=== PATIENT | female | born 1975 | race Caucasian/White ===

== ENCOUNTER 2018-11-01 11:08 | Observation (INO) | payer MEDICAID ==
[2018-11-01 13:27] LABS: ADD UMIC YES; UR ASCORBIC ACID NEGATIVE (NEGATIVE); UR BACTERIA FEW /HPF (NONE SEEN); UR BILIRUBIN (Dip) NEGATIVE (NEGATIVE); UR BLOOD (Dip) 3+ mg/dL (NEGATIVE); UR CLARITY SLIGHTLY CLOUDY (CLEAR); UR COLOR YELLOW (YELLOW); UR GLUCOSE (Dip) NEGATIVE (NEGATIVE); UR KETONES (Dip) 1+ mg/dL (NEGATIVE); UR LEUKOCYTE ESTERASE (Dip) 1+ Leu/ul (NEGATIVE); UR MUCUS FEW /HPF (NONE SEEN); UR NITRITE (Dip) NEGATIVE (NEGATIVE); UR RBC 10 /HPF (0-5); UR SPECIFIC GRAVITY (Dip) 1.009 (1.003-1.030); UR SQUAMOUS EPITHELIAL CELL FEW /HPF (FEW); UR TOTAL PROTEIN (Dip) NEGATIVE (NEGATIVE); UR UROBILINOGEN (Dip) NEGATIVE (NEGATIVE); UR WBC 14 /HPF (0-5)
[2018-11-01] MEDS: LACTATED RINGER'S 1,000 ML IV ×3 (13:43→18:27)
[2018-11-01] MEDS ORDERED: IBUPROFEN 600 MG TAB PO (16:30)
[2018-11-01] MEDS ORDERED: BUTORPHANOL 2 MG INJ IV (16:30)
[2018-11-01] MEDS ORDERED: LIDOCAINE 1% (MPF) 30 ML INJ INJ (16:30)
[2018-11-01] MEDS ORDERED: CARBOPROST 250 MCG INJ IM (16:30)
[2018-11-01] MEDS ORDERED: METHYLERGONOVINE 0.2 MG INJ IM (16:30)
[2018-11-01] MEDS ORDERED: OXYCODONE/ASPIRIN (4.88/325) TAB PO (16:30)
[2018-11-01] MEDS ORDERED: MISOPROSTOL 200 MCG TAB PR (16:30)
[2018-11-01] MEDS ORDERED: BUTORPHANOL 1 MG INJ IV (16:30)
[2018-11-01] MEDS ORDERED: OXYTOCIN 30 UNITS/LR 500 ML IV ×3 (16:30)
[2018-11-01 16:49] LABS: ADD MAN DIFF? NO
[2018-11-01 16:50] LABS: BASOPHILS % 0.3 % (0.0-2.0); EOSINOPHILS % 0.1 % (0.0-7.0); HEMATOCRIT 38.6 % (37.0-47.0); HEMOGLOBIN 13.1 g/dl (12.0-16.0); LYMPHOCYTES # 1.5 10^3/ul (0.8-2.9); LYMPHOCYTES % 13.4 % (15.0-51.0); MEAN CORPUSCULAR HEMOGLOBIN 31.6 pg (29.0-33.0); MEAN CORPUSCULAR HGB CONC 33.9 g/dl (32.0-37.0); MEAN CORPUSCULAR VOLUME 93.2 fl (82.0-101.0); MEAN PLATELET VOLUME 11.1 fl (7.4-10.4); MONOCYTE # 0.5 10^3/ul (0.3-0.9); MONOCYTES % 4.8 % (0.0-11.0); PLATELET COUNT 184 10^3/UL (140-415); RED BLOOD COUNT 4.14 10^6/ul (4.20-5.40); RED CELL DISTRIBUTION WIDTH 13.2 % (11.5-14.5)
[2018-11-01 16:50] LABS: WHITE BLOOD COUNT 11.2 10^3/ul (4.8-10.8)
[2018-11-01 17:06] LABS: INR 0.88; PARTIAL THROMBOPLASTIN TIME 26.4 Sec (23.0-35.0); PT RATIO 0.9
[2018-11-01 17:07] LABS: GLUCOSE 78 mg/dl (70-220)
[2018-11-01] MEDS: BETAMET NA PHOS/AC(6 MG/ML) 2 ML INJ SYG IM (17:17)
[2018-11-01 17:39] LABS: HEPATITIS B SURFACE ANTIGEN NEGATIVE (NEGATIVE)
[2018-11-01 17:48] LABS: HIV 1&2 ANTIBODY NEGATIVE (NEGATIVE)
[2018-11-01] MEDS: ACETAMINOPHEN 325 MG TAB PO (19:00)
[2018-11-02] MEDS: LACTATED RINGER'S 1,000 ML IV ×2 (00:47→08:15)
[2018-11-02] MEDS: BETAMET NA PHOS/AC(6 MG/ML) 2 ML INJ SYG IM (05:39)
[2018-11-02] MEDS: DEXTROSE 5%-LR 1,000 ML IV (11:32)
[2018-11-02 14:52] LABS: RAPID PLASMA REAGIN NONREACTIVE (NR)
[2018-11-04 15:33] LABS: RUBELLA ANTIBODY - IGM <20.00 AU/mL
== END 2018-11-02 15:15 | disposition home or self-care (01) ==
LOC: OBT 11:08 → L-D 11:08 → OBT 16:00 → L-D 16:00
DX: O47.1 False labor at or after 37 completed weeks of gestation (principal); O09.523 Supervision of elderly multigravida, third trimester; Z3A.36 36 weeks gestation of pregnancy
CPT/HCPCS: 76815; 76818; 81001; 82947; 82962; 85025; 85610; 85730; 86592; 86703; 86762; 86850; 86900; 86901; 87086; 87340; 96360; 96361; 99217

== ENCOUNTER 2018-11-17 23:50 | Outpatient (CLI) | payer MEDICAID | END 2018-11-18 03:02 | disposition home or self-care (01) | LOC: OBT 23:50 → L-D 23:50 | DX: O62.9 Abnormality of forces of labor, unspecified (principal); O24.419 Gestational diabetes mellitus in pregnancy, unspecified control; Z3A.38 38 weeks gestation of pregnancy | CPT/HCPCS: 82962 ==

== ENCOUNTER 2018-11-18 07:05 | Inpatient (IN) | payer MEDICAID ==
[2018-11-18] MEDS ORDERED: IBUPROFEN 600 MG TAB PO (08:00)
[2018-11-18] MEDS ORDERED: BUTORPHANOL 2 MG INJ IV (08:00)
[2018-11-18] MEDS ORDERED: METHYLERGONOVINE 0.2 MG INJ IM ×2 (08:00→11:00)
[2018-11-18] MEDS ORDERED: MISOPROSTOL 200 MCG TAB PR ×2 (08:00→11:00)
[2018-11-18] MEDS ORDERED: OXYCODONE/ASPIRIN (4.88/325) TAB PO ×2 (08:00→11:00)
[2018-11-18] MEDS ORDERED: CARBOPROST 250 MCG INJ IM ×2 (08:00→11:00)
[2018-11-18] MEDS ORDERED: OXYTOCIN 30 UNITS/LR 500 ML IV ×3 (08:00→11:00)
[2018-11-18] MEDS: LACTATED RINGER'S 1,000 ML IV (08:01)
[2018-11-18] MEDS: OXYTOCIN 30 UNITS/LR 500 ML IV ×3 (08:35→10:56)
[2018-11-18 09:06] LABS: ADD MAN DIFF? NO
[2018-11-18] MEDS: LIDOCAINE 1% (MPF) 30 ML INJ INJ (09:09)
[2018-11-18 09:11] LABS: BASOPHILS % 0.2 % (0.0-2.0); HEMATOCRIT 39.4 % (37.0-47.0); HEMOGLOBIN 14.1 g/dl (12.0-16.0); LYMPHOCYTES # 1.1 10^3/ul (0.8-2.9); LYMPHOCYTES % 7.3 % (15.0-51.0); MEAN CORPUSCULAR HGB CONC 35.8 g/dl (32.0-37.0); MEAN CORPUSCULAR VOLUME 89.5 fl (82.0-101.0); MEAN PLATELET VOLUME 12.1 fl (7.4-10.4); MONOCYTE # 0.4 10^3/ul (0.3-0.9); MONOCYTES % 2.8 % (0.0-11.0); NEUTROPHIL # 13.4 10^3/ul (1.6-7.5); NEUTROPHILS % 89.1 % (39.0-77.0); PLATELET COUNT 197 10^3/UL (140-415); RED CELL DISTRIBUTION WIDTH 12.7 % (11.5-14.5)
[2018-11-18 09:29] LABS: GLUCOSE 122 mg/dl (70-220)
[2018-11-18 09:29] LABS: INR 0.87; PARTIAL THROMBOPLASTIN TIME 25.8 Sec (23.0-35.0); PROTIME 11.9 Sec (11.9-14.9); PT RATIO 0.9
[2018-11-18 10:00] LABS: HEPATITIS B SURFACE ANTIGEN NEGATIVE (NEGATIVE)
[2018-11-18] MEDS ORDERED: NACL 0.9% 3 ML SYG IV (11:00)
[2018-11-18] MEDS ORDERED: WITCH HAZEL/GLYCERIN PAD PR (11:00)
[2018-11-18] MEDS ORDERED: BENZOCAINE 20% 56 ML SPRAY TOP (11:00)
[2018-11-18] MEDS ORDERED: ZOLPIDEM 5 MG TAB PO (11:00)
[2018-11-18] MEDS ORDERED: SENNA/DOCUSATE NA (8.6MG/50MG) TAB PO (11:00)
[2018-11-18] MEDS: IBUPROFEN 600 MG TAB PO ×3 (12:24→23:49)
[2018-11-18 14:49] LABS: RAPID PLASMA REAGIN NONREACTIVE (NR)
[2018-11-18] MEDS: SENNA/DOCUSATE NA (8.6MG/50MG) TAB PO (20:57)
[2018-11-19] MEDS: IBUPROFEN 600 MG TAB PO ×4 (05:41→23:42)
[2018-11-19 07:56] LABS: ADD MAN DIFF? NO
[2018-11-19 07:59] LABS: WHITE BLOOD COUNT 11.2 10^3/ul (4.8-10.8)
[2018-11-19 07:59] LABS: BASOPHILS % 0.3 % (0.0-2.0); EOSINOPHILS % 0.1 % (0.0-7.0); HEMATOCRIT 34.1 % (37.0-47.0); HEMOGLOBIN 11.9 g/dl (12.0-16.0); LYMPHOCYTES % 9.1 % (15.0-51.0); MEAN CORPUSCULAR HEMOGLOBIN 31.5 pg (29.0-33.0); MEAN CORPUSCULAR HGB CONC 34.9 g/dl (32.0-37.0); MEAN CORPUSCULAR VOLUME 90.2 fl (82.0-101.0); MEAN PLATELET VOLUME 11.7 fl (7.4-10.4); MONOCYTE # 0.6 10^3/ul (0.3-0.9); MONOCYTES % 5.3 % (0.0-11.0); NEUTROPHIL # 9.5 10^3/ul (1.6-7.5); NEUTROPHILS % 84.9 % (39.0-77.0); PLATELET COUNT 157 10^3/UL (140-415); RED BLOOD COUNT 3.78 10^6/ul (4.20-5.40)
[2018-11-19] MEDS: SENNA/DOCUSATE NA (8.6MG/50MG) TAB PO ×2 (09:41→20:53)
[2018-11-20] MEDS: IBUPROFEN 600 MG TAB PO ×2 (05:43→11:27)
[2018-11-20] MEDS: DIPHTH/TET/ACEL PERTUSS (ADULT) 0.5 ML VIAL IM* (09:00)
[2018-11-20] MEDS: SENNA/DOCUSATE NA (8.6MG/50MG) TAB PO (09:00)
== END 2018-11-20 14:50 | disposition home or self-care (01) | DRG 807 ==
LOC: OBT 07:05 → L-D 07:06 → OBT 07:27 → L-D 07:25 → PP1 10:58
PROVIDERS: Obstetrics & Gynecology
PROC: 10E0XZZ Delivery of Products of Conception, External Approach (ICD-10-PCS; principal; 2018-11-18)
PROC: 4A1HXCZ Monitoring of Products of Conception, Cardiac Rate, External Approach (ICD-10-PCS; 2018-11-18)
DX: O24.429 Gestational diabetes mellitus in childbirth, unspecified control (principal); Z37.0 Single live birth; Z3A.38 38 weeks gestation of pregnancy
CPT/HCPCS: 82947; 82962; 85025; 85610; 85730; 86592; 86850; 86900; 86901; 87340; 99464